=== PATIENT | male | born 1970 | race Two or more races ===

== ENCOUNTER 2016-07-16 17:00 | Observation (INO) | payer OTHER ==
[2016-07-16] MEDS ORDERED: Sodium Chloride 0.9% 10 ML Syringe FLUSH PRN (17:04)
[2016-07-16] MEDS ORDERED: Sodium Chloride 0.9% 2.5 ML Syringe FLUSH PRN (17:04)
--- NOTE | 2016-07-16 17:04 | EDM.PDOC ---
[id number] 5d PT HAS CHEST PAINS Time Seen by Provider: 07/16/16 17:02 Source of Information: Reports: Patient History Limitations: Reports: No limitations - History of Present Illness INITIAL COMMENTS - FREE TEXT/NARRATIVE: History of present illness: []Pt has had left chest pain/pressure for one hour. the pain was 6/10 and radiating to his left arm with hand numbness, shortness of breath and dizziness. He denies sweating, syncope or other complaints. His pain was alleviated in the ED after 3 ntg and asa. Review of systems: As per history of present illness and below otherwise all systems reviewed and negative. Past medical history: As per history of present illness and as reviewed below otherwise noncontributory. Surgical history: As per history of present illness and as reviewed below otherwise noncontributory. Social history: No reported history of drug or alcohol abuse. Family history: As per history of present illness and as reviewed below otherwise noncontributory. Physical exam: General: Well developed, well nourished in NAD HEENT: Atraumatic, normocephalic, pupils reactive, negative for conjunctival pallor or scleral icterus, mucous membranes moist, throat clear, neck supple, nontender, trachea midline. Lungs: Clear to auscultation, breath sounds equal bilaterally, chest nontender. Heart: S1S2, regular, negative for clicks, rubs, or JVD. Abdomen: Soft, nondistended, nontender. Negative for masses or hepatosplenomegaly. Negative for costovertebral tenderness. Pelvis: Stable nontender. Genitourinary: Deferred. Rectal: Deferred. Extremities: Atraumatic, negative for cords or calf pain. Neurovascular unremarkable. Neuro: Awake, alert, oriented. Cranial nerves II through XII unremarkable. Cerebellum unremarkable. Motor and sensory unremarkable throughout. Exam nonfocal. Diagnostics: []EKG shows no acute ischemia, inital troponin is negative. cxr is negative. Therapeutics: [] Impression: [] Plan: [] Definitive disposition and diagnosis as appropriate pending reevaluation and review of above. - Related Data Allergies/ADRs: Allergies Allergy/AdvReac Type Severity Reaction Status Date / Time No Known Allergies Allergy Verified 08/26/15 13:38 Home Meds: Home Meds . [No Known Home Meds] 08/26/15 [History] Past Medical History - Past Health History Medical/Surgical History: Denies Medical/Surgical History Social & Family History - Family History Family Medical History: Noncontributory - Tobacco Use Smoking Status *Q: Current Every Day Smoker Years of Tobacco use: 25 Packs/Tins Daily: 0.5 - Recreational Drug Use Recreational Drug Use: No ED ROS GENERAL - Review of Systems Review Of Systems: See Below (see hpi) ED EXAM, GENERAL - Physical Exam Exam: See Below (see hpi) Course - Vital Signs Last Recorded V/S: Last Vital Signs Temp 36.8 C 07/17/16 08:00 Pulse 72 07/17/16 08:00 Resp 16 07/17/16 08:00 BP 113/60 07/17/16 08:00 Pulse Ox 96 07/17/16 08:00 - Orders/Labs/Meds Labs: Laboratory Tests 07/16/16 07/16/16 07/16/16 Range/Units 17:05 17:05 17:05 WBC 7.68 (4.0-11.0) K/uL RBC 4.65 (4.50-5.90) M/uL Hgb 14.4 (13.0-17.0) g/dL Hct 43.3 (38.0-50.0) % MCV 93.1 (80.0-98.0) fL MCH 31.0 (27.0-32.0) pg MCHC 33.3 (31.0-37.0) g/dL RDW Std Deviation 47.1 (28.0-62.0) fl RDW Coeff of Korina 14 (11.0-15.0) % Plt Count 131 L (150-400) K/uL MPV 10.60 (7.40-12.00) fL Neut % (Auto) 54.6 (48.0-80.0) % Lymph % (Auto) 34.1 (16.0-40.0) % Addison % (Auto) 9.6 (0.0-15.0) % Eos % (Auto) 1.3 (0.0-7.0) % Baso % (Auto) 0.4 (0.0-1.5) % Neut # (Auto) 4.2 (1.4-5.7) K/uL Lymph # (Auto) 2.6 H (0.6-2.4) K/uL Addison # (Auto) 0.7 (0.0-0.8) K/uL Eos # (Auto) 0.1 (0.0-0.7) K/uL Baso # (Auto) 0.0 (0.0-0.1) K/uL Nucleated RBC % 0.0 /100WBC Nucleated RBCs # 0 K/uL Sodium 139 (136-146) mmol/L Potassium 4.5 (3.5-5.1) mmol/L Chloride 110 (98-110) mmol/L Carbon Dioxide 21 (21-31) mmol/L BUN 22 (6.0-23.0) mg/dL Creatinine 1.0 (0.6-1.5) mg/dL Est Cr Clr Drug Dosing 103.47 mL/min Estimated GFR (MDRD) > 60.0 ml/min Glucose 90 (60-110) mg/dL Calcium 8.7 L (8.8-10.8) mg/dL Magnesium (1.5-2.3) mEq/L Total Bilirubin 0.5 (0.1-1.5) mg/dL AST 49 H (5-40) IU/L ALT 46 (8-54) IU/L Alkaline Phosphatase 70 (40-150) Troponin I < 0.10 (0.0-0.29) NG/ML Total Protein 6.8 (6.0-8.0) g/dL Albumin 4.0 (3.5-5.0) g/dL Globulin 2.8 (2.0-3.5) g/dL Albumin/Globulin Ratio 1.4 (1.3-2.8) //17 Range/Units 17:05 WBC (4.0-11.0) K/uL RBC (4.50-5.90) M/uL Hgb (13.0-17.0) g/dL Hct (38.0-50.0) % MCV (80.0-98.0) fL MCH (27.0-32.0) pg MCHC (31.0-37.0) g/dL RDW Std Deviation (28.0-62.0) fl RDW Coeff of Korina (11.0-15.0) % Plt Count (150-400) K/uL MPV (7.40-12.00) fL Neut % (Auto) (48.0-80.0) % Lymph % (Auto) (16.0-40.0) % Addison % (Auto) (0.0-15.0) % Eos % (Auto) (0.0-7.0) % Baso % (Auto) (0.0-1.5) % Neut # (Auto) (1.4-5.7) K/uL Lymph # (Auto) (0.6-2.4) K/uL Addison # (Auto) (0.0-0.8) K/uL Eos # (Auto) (0.0-0.7) K/uL Baso # (Auto) (0.0-0.1) K/uL Nucleated RBC % /100WBC Nucleated RBCs # K/uL Sodium (136-146) mmol/L Potassium (3.5-5.1) mmol/L Chloride (98-110) mmol/L Carbon Dioxide (21-31) mmol/L BUN (6.0-23.0) mg/dL Creatinine (0.6-1.5) mg/dL Est Cr Clr Drug Dosing mL/min Estimated GFR (MDRD) ml/min Glucose (60-110) mg/dL Calcium (8.8-10.8) mg/dL Magnesium 2.3 (1.5-2.3) mEq/L Total Bilirubin (0.1-1.5) mg/dL AST (5-40) IU/L ALT (8-54) IU/L Alkaline Phosphatase (40-150) Troponin I (0.0-0.29) NG/ML Total Protein (6.0-8.0) g/dL Albumin (3.5-5.0) g/dL Globulin (2.0-3.5) g/dL Albumin/Globulin Ratio (1.3-2.8) Meds: Medications Discontinued Medications Generic Name Dose Route Start Last Admin Trade Name Freq PRN Reason Stop Dose Admin Acetaminophen 650 mg 07/16/16 18:30 Tylenol PO Q4H PRN Pain (Mild 1-3)/fever Albuterol 2.5 mg 07/16/16 19:15 Proventil Neb Soln NEB Q4HRRT PRN Shortness of Breath Aspirin 324 mg 07/16/16 17:26 07/16/16 17:30 Aspirin PO 07/16/16 17:27 324 mg ONETIME ONE Administration Enoxaparin Sodium 40 mg 07/16/16 19:00 07/16/16 19:21 Lovenox SUBCUT 40 mg Q24H SEBASTIEN Administration Morphine Sulfate 1 mg 07/16/16 19:02 Morphine IVPUSH Q4H PRN Chest Pain Nicotine 7 mg 07/16/16 20:00 07/16/16 19:22 Habitrol TRDERM 7 mg Q24H SEBASTIEN Administration Nitroglycerin 0.4 mg 07/16/16 17:26 07/16/16 17:45 Nitrostat SL 07/16/16 17:37 0.4 mg Q5M PRN Administration Chest Pain Ondansetron HCl 4 mg 07/16/16 18:30 Zofran Odt PO Q4H PRN nausea, able to take PO Sodium Chloride 10 ml 07/16/16 17:04 07/16/16 17:12 Saline Flush FLUSH 10 ml ASDIRECTED PRN Administration Keep Vein Open Sodium Chloride 2.5 ml 07/16/16 17:04 07/16/16 17:12 Saline Flush FLUSH 2.5 ml ASDIRECTED PRN Administration Keep Vein Open Departure - Departure Time of Disposition: 13:00 Disposition: Refer to Observation Clinical Impression: Chest pain Qualifiers: Chest pain type: unspecified Qualified Code(s): R07.9 - Chest pain, unspecified
[2016-07-16] MEDS ORDERED: Aspirin 81 MG Tab.Chew PO ONE (17:26)
[2016-07-16] MEDS: Nitroglycerin 0.4 MG Tab.SL SL PRN ×3 (17:31→17:45)
[2016-07-16 17:43] LABS: CHLORIDE,CL 110 mmol/L (98-110); SODIUM,NA 139 mmol/L (136-146)
[2016-07-16] MEDS ORDERED: Acetaminophen 325 MG Tab PO PRN (18:30)
[2016-07-16] MEDS ORDERED: Ondansetron 4 MG Tab.DIS PO PRN (18:30)
--- NOTE | 2016-07-16 18:42 | PCM.HP ---
H&P History of Present Illness - General Date of Service: 07/16/16 Admit Problem/Dx: Admission Diagnosis/Problem Admission Diagnosis/Problem Acute coronary syndrome Source of Information: Patient, Significant Other History Limitations: Reports: No limitations - History of Present Illness Initial Comments - Free Text/Narative: 45 year old male with no pmh that is admitted with chest pain. Patient was at work when he experienced numbness in his left hand that radiated up to his chest and caused chest pain/pressure. Pain was rated a 6/10. He had dizziness and shortness of breath with this chest pain. No diaphoresis. Patient has no cardiac history and no family history of cardiac disease. He does not take any medications. His notes that he has been having headaches and has been told that he has high blood pressure in the past. ER COURSE: Received SL Nitro x3 which resolved his chest pain. When visiting with him in the ER, he reports no symptoms. He was also given Aspirin 324mg ONETIME. CXR was negative. EKG was negative. Initial troponin was negative. CBC and CMP were unremarkable. Magnesium is pending. Left Upper Chest Pain Score (Numeric/FACES): 5 - Related Data Allergies/Adverse Reactions: Allergies Allergy/AdvReac Type Severity Reaction Status Date / Time No Known Allergies Allergy Verified 08/26/15 13:38 Home Medications: Home Meds . [No Known Home Meds] 08/26/15 [History] Past Medical History - Past Health History Medical/Surgical History: Denies Medical/Surgical History Social & Family History - Family History Family Medical History: Noncontributory - Tobacco Use Smoking Status *Q: Current Every Day Smoker Years of Tobacco use: 25 Packs/Tins Daily: 0.5 Used Tobacco, but Quit: No Second Hand Smoke Exposure: Yes - Caffeine Use Caffeine Use: Reports: Coffee Caffeine Use Comment: 1 cup per day - Alcohol Use Days Per Week of Alcohol Use: 7 Number of Drinks Per Day: 1 Total Drinks Per Week: 7 - Recreational Drug Use Recreational Drug Use: No H&P Review of Systems - Review of Systems: Review Of Systems: See Below General: Reports: no symptoms HEENT: Reports: no symptoms Pulmonary: Reports: No Symptoms Cardiovascular: Reports: no symptoms Gastrointestinal: Reports: No symptoms Genitourinary: Reports: no symptoms Musculoskeletal: Reports: no symptoms Skin: Reports: no symptoms Psychiatric: Reports: no symptoms Neurological: Reports: No Symptoms Hematologic/Lymphatic: Reports: no symptoms Immunologic: Reports: no symptoms Exam - Exam Exam: See Below - Vital Signs Vital Signs: Last Vital Signs Temp 97.9 F 07/16/16 18:29 Pulse 78 07/16/16 18:29 Resp 16 07/16/16 18:29 BP 142/78 H 07/16/16 18:29 Pulse Ox 98 07/16/16 18:29 Weight: 220 lb - Exam General: alert, oriented, 4 HEENT: Hearing intact, Mucosa moist & pink, Normal nasal septum Neck: supple, trachea midline, 2 Lungs: Clear to auscultation, Normal respiratory effort Cardiovascular: regular rate, regular rhythm Abdomen: normal bowel sounds, soft Back Exam: normal inspection Extremities: normal inspection. No: calf tenderness, edema Peripheral Pulses: 2+: radial (L), radial (R) Skin: warm, dry, intact Neurological: cranial nerves intact Neuro Extensive - Mental Status: alert, oriented x3, normal mood/affect, normal cognition Neuro Extensive - Motor, Sensory, Reflexes: CN II-XII intact, normal gait, normal reflexes Psychiatric: alert, normal affect, normal mood - Patient Data Result Diagrams: 07/16/16 17:05 07/16/16 17:05 *Q Meaningful Use (ADM) - VTE *Q VTE Criteria *Q: - Stroke *Q Stroke Criteria *Q: - AMI *Q AMI Criteria *Q: - Problem List (1) Chest pain SNOMED Code(s): 85709089 ICD Code: R07.9 - CHEST PAIN, UNSPECIFIED Status: Acute Current Visit: Yes Problem List Initiated/Reviewed/Updated: Yes Orders Last 24hrs: Active Orders 24 hr Category Date Time Status Patient Status [ADT] Routine ADT 07/16/16 18:30 Active Antiembolic Devices [RC] PER UNIT ROUTINE Care 07/16/16 18:33 Active Cardiac Monitoring [RC] CONTINUOUS Care 07/16/16 18:31 Active Height and Weight [RC] DAILY Care 07/16/16 18:30 Active Intake and Output [RC] QSHIFT Care 07/16/16 18:30 Active Notify Provider Vital Signs [RC] ASDIRECTED Care 07/16/16 18:31 Active Oxygen Therapy [RC] PRN Care 07/16/16 18:30 Active Pulse Oximetry [RC] PRN Care 07/16/16 18:30 Active Up With Assistance [RC] ASDIRECTED Care 07/16/16 18:30 Active VTE/DVT Education [RC] PER UNIT ROUTINE Care 07/16/16 18:30 Active Vital Signs [RC] Q4H Care 07/16/16 18:30 Active Regular Diet [DIET] Diet 07/16/16 Breakfast Active BASIC METABOLIC PANEL,BMP [CHEM] AM Lab 07/17/16 05:11 Ordered CBC WITH AUTO DIFF [HEME] AM Lab 07/17/16 05:11 Ordered MAGNESIUM [CHEM] AM Lab 07/17/16 05:11 Ordered MAGNESIUM [CHEM] Routine Lab 07/16/16 17:05 Received TROPONIN I [CHEM] Q6H Lab 07/16/16 23:00 Ordered TROPONIN I [CHEM] Q6H Lab 07/17/16 05:00 Ordered Acetaminophen [Tylenol] Med 07/16/16 18:30 Ordered 650 mg PO Q4H PRN Enoxaparin [Lovenox] Med 07/16/16 18:30 Ordered 40 mg SUBCUT DAILY Ondansetron [Zofran ODT] Med 07/16/16 18:30 Ordered 4 mg PO Q4H PRN Sequential Compression Device [OM.PC] Per Unit Routine Oth 07/16/16 18:31 Ordered Resuscitation Status Routine Resus Stat 07/16/16 18:30 Ordered Medication Orders Acetaminophen (Tylenol) 650 mg PO Q4H PRN PRN Reason: Pain (Mild 1-3)/fever Enoxaparin Sodium (Lovenox) 40 mg SUBCUT Q24H SEBASTIEN Ondansetron HCl (Zofran Odt) 4 mg PO Q4H PRN PRN Reason: nausea, able to take PO Sodium Chloride (Saline Flush) 10 ml FLUSH ASDIRECTED PRN PRN Reason: Keep Vein Open Last Admin: 07/16/16 17:12 Dose: 10 ml Sodium Chloride (Saline Flush) 2.5 ml FLUSH ASDIRECTED PRN PRN Reason: Keep Vein Open Last Admin: 07/16/16 17:12 Dose: 2.5 ml Assessment/Plan Comment:: 45 year old male admitted with chest pain 1. chest pain: -will trend serial troponins -monitor on telemetry -magnesium level is pending -CBC, BMP and magnesium ordered for the morning 2. Hypertension: -blood pressure readings in ER were 142/72 and 141/68. If consistently elevated , may need to start anti-hypertensive medication Disposition: likely discharge tomorrow.
[2016-07-16] MEDS ORDERED: Enoxaparin 40 MG/0.4 ML Syringe SUBCUT SCH (19:00)
[2016-07-16] MEDS ORDERED: Morphine 2 MG/ML Syringe IVPUSH PRN (19:02)
[2016-07-16] MEDS ORDERED: Albuterol 0.083% 2.5 MG/3 ML Neb Soln NEB PRN (19:15)
[2016-07-16] MEDS ORDERED: Nicotine 7 MG/24 Hr Patch TRDERM SCH (20:00)
[2016-07-17 05:23] LABS: CHLORIDE,CL 112 mmol/L (98-110); SODIUM,NA 140 mmol/L (136-146)
[2016-07-17 09:06] VITALS: BP 113/60
--- NOTE | 2016-07-17 14:04 | CR ---
EXAM DATE: 07/16/16 PATIENT'S AGE: 45 Patient: TALITA BACRLAY Facility: [place], [place] Site . Site : [id number] Study: XRay Chest [id number] 5:26:03 PM Ordering Physician: Doctor Piper Final Report: INDICATION: chest pain TECHNIQUE: Chest 1 view. COMPARISON: None. FINDINGS: Cardiovascular and mediastinum: Heart size and vasculature are normal in caliber and appearance. Mediastinum is within normal limits. Lungs and pleural space: Lungs are clear. No sign of infiltrate or mass. No sign of pleural effusion. No pneumothorax. Bones and soft tissues: No significant findings. IMPRESSION: Unremarkable chest. Dictated by: Jaren Hernandez MD @ 07/16/2016 17:28:42 (Electronic Signature) Report Signed by Proxy and Original Signed Document filed in the Medical Record. [email or web address]
== END 2016-07-17 13:00 | disposition home or self-care (01) ==
LOC: MW.ED 17:00 → MW.MS 18:02
PROVIDERS: ADMIT Internal Medicine; ATTEND Internal Medicine
DX: R07.9 Chest pain, unspecified (principal); I10 Essential (primary) hypertension; F17.210 Nicotine dependence, cigarettes, uncomplicated
CPT/HCPCS: 36415; 71010; 80048; 80053; 83735; 84484; 85025; 96372; 99285; A9270; G0378; J1650; 99284